=== PATIENT | male | born 1970 | race Caucasian/White ===

== ENCOUNTER 2019-01-20 11:22 | Observation (INO) | payer OTHER ==
[~2019-01-20] VITALS: Ht 172.7 cm; Wt 67.9 kg
[~2019-01-20 11:22] MED LIST: AMOX500 PO; CYCL10 PO; HYDACE5 PO; IBUP800 PO; NAPR500 PO; NAPR550 PO
[2019-01-20 12:52] LABS: BASOPHILS ABSOLUTE AUTO 0.06 K/mm3 (0.00-0.23); BASOPHILS PERCENT AUTO 0 % (0-2); EOSINOPHILS ABSOLUTE AUTO 0.18 K/mm3 (0.00-0.68); EOSINOPHILS PERCENT AUTO 1 % (0-6); Hemoglobin 14.7 g/dL (13.5-17.5); IMMATURE GRAN ABSOLUTE AUTO 0.08 K/mm3 (0.00-0.10); IMMATURE GRAN PERCENT AUTO 1 % (0-1); LYMPHOCYTES ABSOLUTE AUTO 2.87 K/mm3 (0.84-5.20); LYMPHOCYTES PERCENT AUTO 19 % (21-46); MONOCYTES ABSOLUTE AUTO 1.17 K/mm3 (0.16-1.47); MONOCYTES PERCENT AUTO 8 % (4-13); Mean Corpuscular HGB 31.4 pg (26.0-34.0); Mean Corpuscular HGB Conc 34.2 g/dL (31.5-36.5); Mean Corpuscular Volume 92 fL (80-100); Mean Platelet Volume 8.7 fL (9.1-12.4); NEUTROPHILS ABSOLUTE AUTO 11.17 K/mm3 (1.96-9.15); NEUTROPHILS PERCENT AUTO 72 % (41-73); Platelet Count 330 K/mm3 (150-400); RDW Coefficient Variation 11.9 % (11.7-14.2); RDW Standard Deviation 40.1 fL (35.1-46.3); Red Blood Cell Count 4.68 M/mm3 (4.30-5.90); White Blood Cell Count 15.53 K/mm3 (4.00-11.30)
[2019-01-20 13:14] LABS: Alanine Aminotransfer (ALT/SGP 15 U/L (12-78); Albumin, Blood 3.1 g/dL (3.4-5.0); Albumin/Globulin Ratio 0.6 (0.8-1.8); Alk Phos 91 U/L (50-136); Anion Gap 7 mmol/L (6-16); Aspartate Aminotrans (AST/SGOT 11 U/L (12-37); Bilirubin, Total 0.4 mg/dL (0.1-1.0); Blood Urea Nitrogen 11 mg/dL (8-24); Bun/Creatinine Ratio 13.6 (12.0-20.0); CO2, Blood 26 mmol/L (21-32); Calcium, Blood 9.1 mg/dL (8.5-10.1); Chloride, Blood 101 mmol/L (98-108); Creatinine, Blood 0.81 mg/dL (0.60-1.20); Glomerular Filtration Rate >60 (60-); Glucose, Blood 107 mg/dL (70-99); Potassium, Blood 3.9 mmol/L (3.5-5.5); Sodium, Blood 134 mmol/L (136-145); Total Protein, Blood 8.1 g/dL (6.4-8.2)
[2019-01-20 14:37] LABS: CPK Creatine Kinase 54 U/L (39-308); Creatine Kinase MB <1.0 ng/mL (0.0-3.6); Creatine Kinase MB Index Unable to Calculate (0.0-4.0)
--- NOTE | 2019-01-20 17:50 | NUR ---
PT TO [facility] VIA WC FROM ROOM 325.PT HAD NO JEWELRY ON. PT HAD BEEN OUT SMOKING PRIOR TO SIGNAL CONSTRUCTOR. RIGHT THUMB VISIBLY SWOLLEN AND RED. ELEVATED EXTRIMTY. LUNGS SOUNDS DECREASED T/H. CONFIRMED SURGERY AND SURGEON.MULTILPE SMALL AND LARGE RED AND SCABBED SORES SCATTERED THOUGHT BOTH ARMS. 1800. CARE TURNED OVER TO GURMEET IRWIN
--- NOTE | 2019-01-20 18:42 | NUR ---
SHIFT SUMMARY PT WAS A NEW ADMISSION @ 1605 THIS SHIFT. PT INDEPENDENT IN ROOM. PT WENT OUTSIDE TO SMOKE AND DID NOT COME BACK UNTIL WAS TOLD NEEDED TO BE BACK IN ROOM FOR DAY SURGERY TO GET HIM. PT HAS BEEN IN DAY SURGERY FOR I&D OF RIGHT HAND. WILL REPORT TO ONCOMING RN.
[2019-01-20 21:46] LABS: U Amphetamine Screen DETECTED; U Methamphetamine Screen DETECTED
[2019-01-20 21:47] LABS: U Barbituate Screen Not Detected; U Benzodiazapine Screen Not Detected; U Buprenorphine Screen Not Detected; U Cannabinoids Screen DETECTED; U Cocaine Screen Not Detected; U Methadone Screen Not Detected; U Opiates Screen Not Detected; U Oxycodone Screen Not Detected; U Phencyclidine Screen Not Detected; U Propoxyphene Screen Not Detected
--- NOTE | 2019-01-21 05:05 | NUR ---
SHIFT SUMMARY: PATIENT ARRIVED FROM RECOVERY ROOM AT 1950, HE WAS DROWSY BUT ALERT. MOTHER WAS IN THE ROOM. HE WAS COOPERATIVE AND PLEASANT. SATS DROPPED SHORTLY WHILE HE WAS DROWSY AND NEEDED TO BE PLACED ON 2 LITERS OF O2. ONCE HE CAME MORE AWAKE OXYGEN WAS NO LONGER NEEDED. HE WAS ABLE TO GET UP AND PUT BACK ON HIS CLOTHES, AND EAT WITH NO PROBLEMS. HE HAS NOT COMPLAINED OF ANY PAIN OR DISCOMFORT OF THE HAND. HE HAS SEVERAL BANDAIDS ON HIS ARMS THAT ARE COVERING WOUNDS. HIS RIGHT HAND IS WRAPPED AND HAS REMAINED DRY AND INTACT ALL EVENING. HE HAS SLEPT THROUGHOUT THE NIGHT. IV HAS INFUSED WITH OUT NO PROBLEMS. MEDS WERE GIVEN PER EMAR. NO OTHER ACUTE CHANGES OCCURED THIS THIS SHIFT WILL REPORT TO DAY SHIFT RN.
[2019-01-21 05:18] LABS: BASOPHILS ABSOLUTE AUTO 0.05 K/mm3 (0.00-0.23); BASOPHILS PERCENT AUTO 1 % (0-2); EOSINOPHILS PERCENT AUTO 3 % (0-6); Hematocrit 41.7 % (37.0-53.0); Hemoglobin 13.6 g/dL (13.5-17.5); IMMATURE GRAN ABSOLUTE AUTO 0.07 K/mm3 (0.00-0.10); IMMATURE GRAN PERCENT AUTO 1 % (0-1); LYMPHOCYTES ABSOLUTE AUTO 2.38 K/mm3 (0.84-5.20); LYMPHOCYTES PERCENT AUTO 23 % (21-46); MONOCYTES ABSOLUTE AUTO 0.88 K/mm3 (0.16-1.47); MONOCYTES PERCENT AUTO 9 % (4-13); Mean Corpuscular HGB 30.6 pg (26.0-34.0); Mean Corpuscular HGB Conc 32.6 g/dL (31.5-36.5); Mean Corpuscular Volume 94 fL (80-100); Mean Platelet Volume 8.8 fL (9.1-12.4); NEUTROPHILS ABSOLUTE AUTO 6.65 K/mm3 (1.96-9.15); NEUTROPHILS PERCENT AUTO 64 % (41-73); Platelet Count 291 K/mm3 (150-400); RDW Standard Deviation 41.6 fL (35.1-46.3); Red Blood Cell Count 4.44 M/mm3 (4.30-5.90); White Blood Cell Count 10.33 K/mm3 (4.00-11.30)
[2019-01-21 05:56] LABS: Anion Gap 6 mmol/L (6-16); Blood Urea Nitrogen 9 mg/dL (8-24); Bun/Creatinine Ratio 11.7 (12.0-20.0); CO2, Blood 28 mmol/L (21-32); Calcium, Blood 8.1 mg/dL (8.5-10.1); Chloride, Blood 105 mmol/L (98-108); Creatinine, Blood 0.77 mg/dL (0.60-1.20); Glomerular Filtration Rate >60 (60-); Glucose, Blood 75 mg/dL (70-99); Sodium, Blood 139 mmol/L (136-145)
--- NOTE | 2019-01-21 07:00 | NUR ---
ASSUMED CARE OF PT- REPORT RECIEVED FROM NIGHT LORENA OVIEDO. PER REPORT PT IS ALERT AND ORIENTED AND INDEPENDENT IN THE ROOM. PT HAD I&D DONE. PER REPORT POTENTIAL DISCHARGE TODAY. PT REFUSED MORNING VITALS AND PO MEDS.
[2019-01-21] MEDS ORDERED: DOXY100 PO (10:52)
[2019-01-21] MEDS ORDERED: ACET325 PO (10:53)
[2019-01-21] MEDS ORDERED: TRAM50 PO (10:53)
--- NOTE | 2019-01-21 14:37 | NUR ---
PHARMACY CALLED, 100MG TABS NOT COVERED FOR TRAMADOL. ORDER CHANGED TO 2-50MG TABS EVERY 8 HOURS NEEDED FOR PAIN FILL QUANTITY OF 20. OK PER DR MARTIN.
--- NOTE | 2019-01-21 16:10 | NUR ---
DISCHARGE NOTE- PT WAS GIVEN VERBAL AND WRITTEN DISCHARGE INSTRUCTIONS AND ACKNOWLEDGED UNDERSTANDING OF THEM, BOTH IV'S DC'D PRIOR TO DISCHARGE. PT ALERT AND ORIENTED AND WAS ESCORTED OUT VIA W/C BY THE SENIOR ESTIMATOR AFTER DR STEPHEN CAME TO SEE THE PT. WILL SEE THE PT IN HIS OFFICE ON THURSDAY. PT IS AWARE.
== END 2019-01-21 14:15 | disposition home or self-care (01) ==
LOC: ER 11:22 → MEDS 11:23 → ER 15:02 → MEDS 15:02 → ENPENDDIS 01-21 10:15 → MEDS 01-21 14:15
PROVIDERS: Nurse Practitioner Acute Care; Orthopaedic Surgery; Physician Assistant; ADMIT Internal Medicine
PROC: 0H9FXZZ Drainage of Right Hand Skin, External Approach (ICD-10-PCS; principal; 2019-01-20 18:00)
DX: A41.9 Sepsis, unspecified organism (principal); L03.011 Cellulitis of right finger; R21 Rash and other nonspecific skin eruption; F19.10 Other psychoactive substance abuse, uncomplicated; F17.210 Nicotine dependence, cigarettes, uncomplicated
CPT/HCPCS: 36415; 73120; 73223; 80048; 80053; 82550; 82553; 83605; 85025; 87040; 87070; 87075; 87077; 87147; 87186; 87205; 96365; 96366; 99284-25; A9577; G0378; J1650; J2250; J2704; J3010; J3370; J7030; J7120

== ENCOUNTER 2019-06-06 19:49 | Observation (INO) | payer OTHER ==
[~2019-06-06] VITALS: Ht 172.7 cm; Wt 69.0 kg
[~2019-06-06 19:49] MED LIST changes: +ACET325 PO; +DOXY100 PO; +TRAM50 PO
[2019-06-06 21:11] LABS: BASOPHILS ABSOLUTE AUTO 0.07 K/mm3 (0.00-0.23); BASOPHILS PERCENT AUTO 1 % (0-2); EOSINOPHILS ABSOLUTE AUTO 0.37 K/mm3 (0.00-0.68); EOSINOPHILS PERCENT AUTO 2 % (0-6); Hematocrit 44.3 % (37.0-53.0); Hemoglobin 14.8 g/dL (13.5-17.5); IMMATURE GRAN ABSOLUTE AUTO 0.05 K/mm3 (0.00-0.10); IMMATURE GRAN PERCENT AUTO 0 % (0-1); LYMPHOCYTES ABSOLUTE AUTO 2.42 K/mm3 (0.84-5.20); LYMPHOCYTES PERCENT AUTO 16 % (21-46); MONOCYTES ABSOLUTE AUTO 1.15 K/mm3 (0.16-1.47); MONOCYTES PERCENT AUTO 8 % (4-13); Mean Corpuscular HGB 30.1 pg (26.0-34.0); Mean Corpuscular HGB Conc 33.4 g/dL (31.5-36.5); Mean Corpuscular Volume 90 fL (80-100); Mean Platelet Volume 8.8 fL (9.1-12.4); NEUTROPHILS ABSOLUTE AUTO 11.21 K/mm3 (1.96-9.15); NEUTROPHILS PERCENT AUTO 74 % (41-73); Platelet Count 298 K/mm3 (150-400); RDW Coefficient Variation 12.3 % (11.7-14.2); RDW Standard Deviation 40.3 fL (35.1-46.3); Red Blood Cell Count 4.91 M/mm3 (4.30-5.90); White Blood Cell Count 15.27 K/mm3 (4.00-11.30)
[2019-06-06 21:29] LABS: Alanine Aminotransfer (ALT/SGP 14 U/L (12-78); Albumin, Blood 3.5 g/dL (3.4-5.0); Albumin/Globulin Ratio 0.9 (0.8-1.8); Alk Phos 89 U/L (50-136); Anion Gap 6 mmol/L (6-16); Aspartate Aminotrans (AST/SGOT 13 U/L (12-37); Bilirubin, Total 0.2 mg/dL (0.1-1.0); Blood Urea Nitrogen 10 mg/dL (8-24); Bun/Creatinine Ratio 15.6 (12.0-20.0); CO2, Blood 29 mmol/L (21-32); Calcium, Blood 8.8 mg/dL (8.5-10.1); Chloride, Blood 102 mmol/L (98-108); Creatinine, Blood 0.64 mg/dL (0.60-1.20); Globulin, Blood 3.8 g/dL (2.2-4.0); Glomerular Filtration Rate >60 (60-); Glucose, Blood 143 mg/dL (70-99); Potassium, Blood 3.5 mmol/L (3.5-5.5); Sodium, Blood 137 mmol/L (136-145); Total Protein, Blood 7.3 g/dL (6.4-8.2)
--- NOTE | 2019-06-07 07:00 | NUR ---
REPORT FROM ZACHARY CARRILLO. ASSUMED PT CARE.
--- NOTE | 2019-06-07 11:55 | NUR ---
PT STILL WORKING ON [employer]. DENIES NEEDS. AWAITING ROOM ASSIGNMENT.
--- NOTE | 2019-06-07 15:26 | NUR ---
Received report from Laureen in PACU; the pt was promptly received afterwards to room 231. He is awake, drowsy, and answering questions and stating frequently that he is hungry. Tolerated jello, ice chips and water at this time. Denies nausea. Denies pain. Left hand is bandaged and dressing is clean, dry and intact. His digits 1-4 on the left hand are visible, and are pink, warm and brisk cap refill. He denies numbness/tingling on his hands/feet. Attempted to drink his jello, and after instruction to try the spoon for the jello he picked up the straw and attempted to drink it it with the straw. Instructed again to use the spoon, and then he was able to steel pickler the correct item and ate the jello with a flourish. Bed alarm on.
[2019-06-07 15:43] LABS: Automated BF RBC Count 0.202 M/mm3 (0-0); RBC Count, Body Fluid 202000 /mm3 (0-0)
[2019-06-07 16:10] LABS: Automated BF WBC Count >200.000 K/mm3 (0-999); Body Fluid WBC Count 200001 /mm3 (0-999)
[2019-06-07 16:32] LABS: Total Cell Count, Body Fluid 100
[2019-06-07 16:33] LABS: Color, Body Fluid Red (None-Yellow)
[2019-06-07 16:34] LABS: Appearance, Body Fluid Turbid (Clear)
--- NOTE | 2019-06-07 17:43 | NUR ---
PT OUT OF ROOM PT AMBULATING IND OUTSIDE. ABX AND SMOKING CESSATION EDUCATION PROVIDED.
--- NOTE | 2019-06-07 18:10 | NUR ---
SHIFT SUMMARY NO ACUTE CHANGES SINCE ASSUMING CARE AT 1630 TODAY. DRESSING TO LEFT 5TH DIGIT C/D/I. PT TOLERATING REGULAR DIET. AMBULATES IND IN ROOM. VOIDING WITHOUT DIFFICULTY. ABX/IVF RUNNING PER ORDERS. DENIED DISCOMFORT OR PAIN. A/OX4 WITH VSS. PT CURRENTLY RESTING IN ROOM WITH CALL LIGHT IN REACH. WILL CONT TO MONITOR AND GIVE REPORT TO ONCOMING RN.
--- NOTE | 2019-06-08 04:13 | NUR ---
POD 1 S/P I&D OF LEFT PINKY FINGER. PT DRESSING CDI. PAIN MGD W/PO PAIN MEDS W/REP RELIEF. PT ROSA REG PO, NO C/O N/V. IS VOIDING W/O DIFFICULTY. PT INDEP IN ROOM, IS USING CALL LIGHT FOR ASSISTANCE. IV ABX CONT PER ORDERS. WILL CONT TO MONITOR UNTIL REP GIVEN TO ONCOMING RN.
[2019-06-08 05:27] LABS: BASOPHILS ABSOLUTE AUTO 0.02 K/mm3 (0.00-0.23); BASOPHILS PERCENT AUTO 0 % (0-2); EOSINOPHILS ABSOLUTE AUTO 0.01 K/mm3 (0.00-0.68); EOSINOPHILS PERCENT AUTO 0 % (0-6); Hematocrit 42.6 % (37.0-53.0); Hemoglobin 14.1 g/dL (13.5-17.5); IMMATURE GRAN ABSOLUTE AUTO 0.04 K/mm3 (0.00-0.10); IMMATURE GRAN PERCENT AUTO 0 % (0-1); LYMPHOCYTES ABSOLUTE AUTO 1.15 K/mm3 (0.84-5.20); LYMPHOCYTES PERCENT AUTO 9 % (21-46); MONOCYTES ABSOLUTE AUTO 0.61 K/mm3 (0.16-1.47); MONOCYTES PERCENT AUTO 5 % (4-13); Mean Corpuscular HGB Conc 33.1 g/dL (31.5-36.5); Mean Corpuscular Volume 91 fL (80-100); NEUTROPHILS ABSOLUTE AUTO 11.36 K/mm3 (1.96-9.15); NEUTROPHILS PERCENT AUTO 86 % (41-73); Platelet Count 281 K/mm3 (150-400); RDW Coefficient Variation 12.1 % (11.7-14.2); RDW Standard Deviation 40.3 fL (35.1-46.3); White Blood Cell Count 13.19 K/mm3 (4.00-11.30)
[2019-06-08 05:51] LABS: Anion Gap 8 mmol/L (6-16); Blood Urea Nitrogen 15 mg/dL (8-24); Bun/Creatinine Ratio 19.3 (12.0-20.0); CO2, Blood 27 mmol/L (21-32); Calcium, Blood 8.8 mg/dL (8.5-10.1); Chloride, Blood 103 mmol/L (98-108); Creatinine, Blood 0.78 mg/dL (0.60-1.20); Glomerular Filtration Rate >60 (60-); Glucose, Blood 141 mg/dL (70-99); Potassium, Blood 4.5 mmol/L (3.5-5.5); Sodium, Blood 138 mmol/L (136-145)
[2019-06-08] MEDS ORDERED: HYDR1TAB94 PO (16:51)
[2019-06-08] MEDS ORDERED: AMOCLA875 PO (16:52)
--- NOTE | 2019-06-08 17:16 | NUR ---
DISCHARGE PT EDUCATED ON AND RECEIVED PRINTED DC INSTRUCTIONS AND VERBALIZED AN UNDERSTANDING. PT ALSO GIVEN 2 DAYS WORTH OF WOUND CARE SUPPLIES. REFERRAL SENT TO OUTPATIENT WOUND CLINIC. IVS DC'D. PT REPORTS HE WILL CALL AND ARRANGE F/U APPTS. AUGMENTIN RX CALLED INTO [facility]. HARD RX FOR NORCO GIVEN TO PT. PT GATHERING PERSONAL BELONGINGS. CALLING PT TAXI FOR RIDE HOME.
--- NOTE | 2019-06-08 17:19 | NUR ---
DR. TURNER CHANGED DRESSING TODAY.
--- NOTE | 2019-06-08 17:55 | NUR ---
[facility] CALLED. TAXI TO ETHICS MANAGER PT IN APPROX 10-15 MINS.
== END 2019-06-08 18:22 | disposition home or self-care (01) ==
LOC: ER 19:49 → ERHOLD 19:50 → SURS 19:50 → ERHOLD 19:51 → ER 22:19 → SURS 06-07 13:29
PROVIDERS: Internal Medicine; Orthopaedic Surgery; Physician Assistant; ADMIT Internal Medicine
PROC: 0JBK0ZZ Excision of Left Hand Subcutaneous Tissue and Fascia, Open Approach (ICD-10-PCS; principal; 2019-06-07 13:45)
DX: L03.012 Cellulitis of left finger (principal); F17.210 Nicotine dependence, cigarettes, uncomplicated; Z79.899 Other long term (current) drug therapy
CPT/HCPCS: 36415; 73130; 73201; 80048; 80053; 83605; 85025; 87070; 87075; 87147; 87205; 89051; 94762; 96361; 96366; 96372-59; 96374-59; 96375; 96375-59; 96376; 99285-25; A9270-GY; G0378; J1100; J1650; J1885; J2250; J2370; J2405; J2543; J2704; J3010; J3370; J7050; J7120; Q9967

== ENCOUNTER → 2020-10-23 | Outpatient (CLI) | payer OTHER ==
[~2020-10-23] MED LIST changes: +AMOCLA875 PO; +HYDR1TAB94 PO
== END | disposition home or self-care (01) ==
LOC: LAB SHORT 19:15 → LAB 19:15
DX: L02.91 Cutaneous abscess, unspecified (principal)
CPT/HCPCS: 87070; 87075; 87077; 87147; 87186; 87205

== ENCOUNTER 2022-04-08 16:26 | Inpatient (IN) | payer OTHER ==
[~2022-04-08] VITALS: Ht 172.7 cm; Wt 69.6 kg
[2022-04-08 17:39] LABS: BASOPHILS ABSOLUTE AUTO 0.03 K/mm3 (0.00-0.23); BASOPHILS PERCENT AUTO 0 % (0-2); EOSINOPHILS ABSOLUTE AUTO 0.01 K/mm3 (0.00-0.68); EOSINOPHILS PERCENT AUTO 0 % (0-6); Hematocrit 42.5 % (37.0-53.0); IMMATURE GRAN ABSOLUTE AUTO 0.38 K/mm3 (0.00-0.10); IMMATURE GRAN PERCENT AUTO 2 % (0-1); LYMPHOCYTES ABSOLUTE AUTO 0.52 K/mm3 (0.84-5.20); LYMPHOCYTES PERCENT AUTO 3 % (21-46); MONOCYTES ABSOLUTE AUTO 1.01 K/mm3 (0.16-1.47); MONOCYTES PERCENT AUTO 6 % (4-13); Mean Corpuscular HGB 30.7 pg (26.0-34.0); Mean Corpuscular HGB Conc 35.3 g/dL (31.5-36.5); Mean Corpuscular Volume 87 fL (80-100); NEUTROPHILS PERCENT AUTO 89 % (41-73); Platelet Count 239 K/mm3 (150-400); RDW Coefficient Variation 12.4 % (11.7-14.2); RDW Standard Deviation 39.6 fL (35.1-46.3); Red Blood Cell Count 4.88 M/mm3 (4.30-5.90); White Blood Cell Count 18.35 K/mm3 (4.00-11.30)
[2022-04-08 17:48] LABS: Albumin, Blood 3.4 g/dL (3.4-5.0); Albumin/Globulin Ratio 0.8 (0.8-1.8); Bilirubin, Total 0.6 mg/dL (0.1-1.0); Bun/Creatinine Ratio 9.9 (12.0-20.0); Calcium, Blood 8.5 mg/dL (8.5-10.1); Creatinine, Blood 0.71 mg/dL (0.60-1.20); Globulin, Blood 4.1 g/dL (2.2-4.0); Potassium, Blood 3.5 mmol/L (3.5-5.5); Total Protein, Blood 7.5 g/dL (6.4-8.2)
[2022-04-08 18:58] LABS: Influenza A, PCR NEGATIVE (NEGATIVE); Influenza B, PCR NEGATIVE (NEGATIVE); Resp Syncytial Virus, PCR NEGATIVE (NEGATIVE); SARS-Cov-2 (COVID-19) PCR, MMC NEGATIVE (NEGATIVE)
--- NOTE | 2022-04-09 04:14 | NUR ---
PATIENT ARRIVED IN ROOM ABOUT 2326. AOX3-4 BUT SOMEWHAT DIFFICULT TO AROUSE. ABLE TO ANSWER QUESTIONS BUT HAD TO REPEAT MYSELF SEVERAL TIMES FOR HIM TO FOCUS ENOUGH TO ANSWER. PATIENT WAS SELF REPORTEDLY VERY TIRED AND WANTED TO SLEEP. ABLE TO COMPLETE HEALTH HX AND MEDICATION RECONCILIATION WITH HIS ASSISTANCE. IV IN LEFT AC FLUSHES WELL, FINISHED HANGING AZITHROMYCIN AND SALINE LOCKED. PATIENT IS MOSTLY INDEPENDENT WITHIN ROOM, ABLE TO TRANSFER HIMSELF TO COMMODE WITHOUT DIFFICULTY. CALLS APPROPRIATELY. AROUND 0230 VS CHECK REMARKABLE FOR ELEVATED TEMP. ADMINISTERED PRN ACETAMINOPHEN. RECHECKED TEMP ABOUT 0400 AND IT HAD FALLEN TO 97.8. SPUTUM SAMPLE SENT TO [facility] PER ORDER. PATIENT HAS BEEN ABLE TO SLEEP THROUGH MOST OF SHIFT. CALL LIGHT LEFT WITHIN REACH.
[2022-04-09 05:11] LABS: BASOPHILS ABSOLUTE AUTO 0.04 K/mm3 (0.00-0.23); BASOPHILS PERCENT AUTO 0 % (0-2); EOSINOPHILS ABSOLUTE AUTO 0.18 K/mm3 (0.00-0.68); EOSINOPHILS PERCENT AUTO 1 % (0-6); Hematocrit 39.5 % (37.0-53.0); Hemoglobin 13.5 g/dL (13.5-17.5); IMMATURE GRAN ABSOLUTE AUTO 0.66 K/mm3 (0.00-0.10); IMMATURE GRAN PERCENT AUTO 3 % (0-1); LYMPHOCYTES ABSOLUTE AUTO 1.37 K/mm3 (0.84-5.20); LYMPHOCYTES PERCENT AUTO 6 % (21-46); MONOCYTES ABSOLUTE AUTO 0.98 K/mm3 (0.16-1.47); MONOCYTES PERCENT AUTO 4 % (4-13); Mean Corpuscular HGB 30.3 pg (26.0-34.0); Mean Corpuscular HGB Conc 34.2 g/dL (31.5-36.5); Mean Corpuscular Volume 89 fL (80-100); Mean Platelet Volume 9.9 fL (9.1-12.4); NEUTROPHILS ABSOLUTE AUTO 20.06 K/mm3 (1.96-9.15); NEUTROPHILS PERCENT AUTO 86 % (41-73); Platelet Count 231 K/mm3 (150-400); RDW Coefficient Variation 12.7 % (11.7-14.2); Red Blood Cell Count 4.45 M/mm3 (4.30-5.90); White Blood Cell Count 23.29 K/mm3 (4.00-11.30)
[2022-04-09 05:36] LABS: Bun/Creatinine Ratio 12.1 (12.0-20.0); Calcium, Blood 8.1 mg/dL (8.5-10.1); Creatinine, Blood 0.91 mg/dL (0.60-1.20); Potassium, Blood 3.8 mmol/L (3.5-5.5)
[2022-04-09 05:56] LABS: U Amphetamine Screen DETECTED; U Barbituate Screen Not Detected; U Benzodiazapine Screen Not Detected; U Buprenorphine Screen Not Detected; U Cannabinoids Screen Not Detected; U Cocaine Screen Not Detected; U Methadone Screen Not Detected; U Methamphetamine Screen DETECTED; U Opiates Screen Not Detected; U Oxycodone Screen Not Detected; U Phencyclidine Screen Not Detected; U Propoxyphene Screen Not Detected
--- NOTE | 2022-04-09 17:35 | NUR ---
SHIFT SUMMARY PT INDEPENDENT IN ROOM. HARSH COUGH NOTED WHICH REPORTS CAUSES CHEST PAIN. OTHERWISE NO PAIN. DENIES ANY SOB WITH ACTIVITY WELL. COOPERATIVE WITH CARE AND ANSWERS QUESTIONS APPROPRIATELY. SHOWER TAKEN AND TOLERATED WELL.
[2022-04-10 05:10] LABS: BASOPHILS ABSOLUTE AUTO 0.05 K/mm3 (0.00-0.23); BASOPHILS PERCENT AUTO 0 % (0-2); EOSINOPHILS ABSOLUTE AUTO 0.25 K/mm3 (0.00-0.68); EOSINOPHILS PERCENT AUTO 1 % (0-6); Hemoglobin 13.1 g/dL (13.5-17.5); IMMATURE GRAN ABSOLUTE AUTO 0.18 K/mm3 (0.00-0.10); IMMATURE GRAN PERCENT AUTO 1 % (0-1); LYMPHOCYTES ABSOLUTE AUTO 1.85 K/mm3 (0.84-5.20); LYMPHOCYTES PERCENT AUTO 9 % (21-46); MONOCYTES ABSOLUTE AUTO 1.07 K/mm3 (0.16-1.47); MONOCYTES PERCENT AUTO 5 % (4-13); Mean Corpuscular HGB 30.2 pg (26.0-34.0); Mean Corpuscular HGB Conc 34.5 g/dL (31.5-36.5); Mean Corpuscular Volume 88 fL (80-100); NEUTROPHILS ABSOLUTE AUTO 18.28 K/mm3 (1.96-9.15); NEUTROPHILS PERCENT AUTO 84 % (41-73); Platelet Count 237 K/mm3 (150-400); RDW Coefficient Variation 12.6 % (11.7-14.2); RDW Standard Deviation 40.9 fL (35.1-46.3); Red Blood Cell Count 4.34 M/mm3 (4.30-5.90); White Blood Cell Count 21.68 K/mm3 (4.00-11.30)
[2022-04-10 05:21] LABS: Bun/Creatinine Ratio 18.2 (12.0-20.0); Calcium, Blood 8.2 mg/dL (8.5-10.1); Creatinine, Blood 0.82 mg/dL (0.60-1.20); Potassium, Blood 3.9 mmol/L (3.5-5.5)
--- NOTE | 2022-04-10 08:33 | NUR ---
GEOLOGICAL ENGINEER SUMMARY MR HICKEY WAS VERY QUIET OVERNIGHT. HE MADE IT CLEAR THAT "HE WAS FINE AND DIDN'T FEEL HE NEEDED GARETH FURTHER IV ANTIBIOTICS. " HE DID, IN THE END TAKE BOTH THE zITHROMAX WELL THE VANCO. HE DID TAKE 2 TYLENOL ONCE OVERNIGHT FOR PAIN BEFORE FALLING TO SLEEP
--- NOTE | 2022-04-10 19:35 | NUR ---
SHIFT SUMMARY PATIENT ALERT AND ORIENTED. RESTED IN BED ALL DAY WATCHING TV. INDEPENDENT IN ROOM. TOLERATING REGULAR DIET AND LIQUIDS. TELE DC'D. MEDICATED FOR PLEURITIC CHEST PAIN PER EMAR. PAIN MOSTLY WITH COUGH. PLAN TO DISCHARGE TOMORROW WITH ORAL ABX.
--- NOTE | 2022-04-11 07:38 | NUR ---
PATIENT WAS UP MOST OF THE NIGHT. HE REFUSED IV RE START TO TAKE HIS LAST IV ANTIBIOTICS,(ORDER FOR ORAL AUGMENTIN) WAS RECEIVED AND GIVEN. HE THEN,THIS MORNING,HE REFUSED AM LABS. MINOR ASSESSMENT WAS ALLOWED EARLY IN THE EVENING WHICH DEFINATELY SOUNDED IMPROVED OVER THE NIGHT PREVIOUS
[2022-04-11] MEDS ORDERED: Acetaminophen650 M1 PO (10:26)
[2022-04-11] MEDS ORDERED: AMOCLA875 PO (10:28)
[2022-04-11] MEDS ORDERED: PROBIOTIC1 EA13 PO (10:31)
--- NOTE | 2022-04-11 11:31 | NUR ---
1131 DISCHARGED WITH TRANSPORTATION SERVICE, PATIENT STATES UNDERSTANDING OF DISCHARGE, FOLLOW UP NEEDS, MEDICATION
== END 2022-04-11 11:34 | disposition home or self-care (01) | DRG 871 ==
LOC: ER 16:26 → MEDS 21:56
PROVIDERS: Internal Medicine; Student in an Organized Health Care Education/Training Program; ADMIT Family Medicine
DX: A41.9 Sepsis, unspecified organism (principal); J18.9 Pneumonia, unspecified organism; E87.1 Hypo-osmolality and hyponatremia; R04.2 Hemoptysis; F17.210 Nicotine dependence, cigarettes, uncomplicated; F15.10 Other stimulant abuse, uncomplicated; B86 Scabies; J30.1 Allergic rhinitis due to pollen; Z20.822 Contact with and (suspected) exposure to COVID-19; Z79.891 Long term (current) use of opiate analgesic; Z79.2 Long term (current) use of antibiotics; Z98.890 Other specified postprocedural states; Z87.2 Personal history of diseases of the skin and subcutaneous tissue; Z71.6 Tobacco abuse counseling
CPT/HCPCS: 0241U; 36415; 71045; 80048; 80053; 83605; 84484; 85025; 87070; 87205; 93005; 93010; 94760; 96365; 96375; 99285-25; A9270; J0456; J0696; J1885; J2405; J7030; J7040; J7050

== ENCOUNTER 2022-06-12 22:25 | Observation (INO) | payer OTHER ==
[~2022-06-12] VITALS: Ht 172.7 cm; Wt 66.4 kg
[~2022-06-12 22:25] MED LIST changes: +Acetaminophen650 M1 PO; +PROBIOTIC1 EA13 PO
[2022-06-12 23:18] LABS: BASOPHILS ABSOLUTE AUTO 0.07 K/mm3 (0.00-0.23); BASOPHILS PERCENT AUTO 0 % (0-2); EOSINOPHILS ABSOLUTE AUTO 0.02 K/mm3 (0.00-0.68); EOSINOPHILS PERCENT AUTO 0 % (0-6); Hematocrit 49.7 % (37.0-53.0); Hemoglobin 17.6 g/dL (13.5-17.5); IMMATURE GRAN ABSOLUTE AUTO 0.09 K/mm3 (0.00-0.10); IMMATURE GRAN PERCENT AUTO 1 % (0-1); LYMPHOCYTES ABSOLUTE AUTO 1.72 K/mm3 (0.84-5.20); LYMPHOCYTES PERCENT AUTO 9 % (21-46); MONOCYTES ABSOLUTE AUTO 1.37 K/mm3 (0.16-1.47); MONOCYTES PERCENT AUTO 7 % (4-13); Mean Corpuscular HGB 30.6 pg (26.0-34.0); Mean Corpuscular HGB Conc 35.4 g/dL (31.5-36.5); Mean Corpuscular Volume 86 fL (80-100); Mean Platelet Volume 9.1 fL (9.1-12.4); NEUTROPHILS ABSOLUTE AUTO 15.14 K/mm3 (1.96-9.15); NEUTROPHILS PERCENT AUTO 82 % (41-73); Platelet Count 337 K/mm3 (150-400); RDW Coefficient Variation 13.1 % (11.7-14.2); Red Blood Cell Count 5.76 M/mm3 (4.30-5.90); White Blood Cell Count 18.41 K/mm3 (4.00-11.30)
[2022-06-12 23:42] LABS: Albumin, Blood 3.8 g/dL (3.4-5.0); Albumin/Globulin Ratio 0.8 (0.8-1.8); Bilirubin, Total 0.6 mg/dL (0.1-1.0); Bun/Creatinine Ratio 20.9 (12.0-20.0); Creatinine, Blood 1.1 mg/dL (0.60-1.20); Potassium, Blood 4.4 mmol/L (3.5-5.5); Total Protein, Blood 8.8 g/dL (6.4-8.2)
[2022-06-13 06:06] LABS: BASOPHILS ABSOLUTE AUTO 0.04 K/mm3 (0.00-0.23); BASOPHILS PERCENT AUTO 0 % (0-2); EOSINOPHILS PERCENT AUTO 1 % (0-6); Hematocrit 44.5 % (37.0-53.0); Hemoglobin 15.1 g/dL (13.5-17.5); IMMATURE GRAN ABSOLUTE AUTO 0.07 K/mm3 (0.00-0.10); IMMATURE GRAN PERCENT AUTO 0 % (0-1); LYMPHOCYTES ABSOLUTE AUTO 3.57 K/mm3 (0.84-5.20); LYMPHOCYTES PERCENT AUTO 19 % (21-46); MONOCYTES ABSOLUTE AUTO 1.33 K/mm3 (0.16-1.47); MONOCYTES PERCENT AUTO 7 % (4-13); Mean Corpuscular HGB 30.3 pg (26.0-34.0); Mean Corpuscular HGB Conc 33.9 g/dL (31.5-36.5); Mean Corpuscular Volume 89 fL (80-100); Mean Platelet Volume 8.9 fL (9.1-12.4); NEUTROPHILS ABSOLUTE AUTO 13.27 K/mm3 (1.96-9.15); NEUTROPHILS PERCENT AUTO 72 % (41-73); Platelet Count 312 K/mm3 (150-400); RDW Coefficient Variation 13.3 % (11.7-14.2); RDW Standard Deviation 43.4 fL (35.1-46.3); Red Blood Cell Count 4.99 M/mm3 (4.30-5.90); White Blood Cell Count 18.38 K/mm3 (4.00-11.30)
[2022-06-13 06:24] LABS: Calcium, Blood 8.7 mg/dL (8.5-10.1); Creatinine, Blood 1.15 mg/dL (0.60-1.20); Potassium, Blood 3.6 mmol/L (3.5-5.5)
--- NOTE | 2022-06-13 07:27 | NUR ---
PATIENT COMBATIVE AND ANGRY, REFUSING CARE, NPO, HAD AN EPISODE OF COFFEE GROUND EMISIS, REFUSED MORNING MEDICATION, WAITING ON [facility] TO TRANSFER FOR GI CONSULT, ADMIT TO MONITOR ONLY
[2022-06-13 14:24] LABS: Hematocrit 45.7 % (37.0-53.0); Hemoglobin 15.6 g/dL (13.5-17.5)
--- NOTE | 2022-06-13 19:48 | NUR ---
PT PLEASANT TODAY. TALKED ABOUT HIS SKIN SOME. LOOKS DARK DIRTY. HE STATES HAS BEEN BURNING CLEARING LAND RECENTLY. ENCOURAGED GOOD SHOWER, WHICH HE DID TODAY. GOT SOME STAIN OFF. ENCOURAGED HIM TO TAKE SHOWER EVERY DAY. STATES HAS TRAILER OUT ON PROPERTY HE STAYS AT, BUT TRYING TO GET A BETTER ONE. IV FINISHED AND SALINE LOCKED. NO C/O PAIN. HAD SMALL COFFEE GROUND DARK EMESIS THIS AM AT SHIFT CHANGE. HAVE SEEN NONE SINCE. NO NEW CONCERNS NOTED. PENDING TRANSFER TO OTHER HOSPITAL FOR GI TREATMENT. BED IN [facility], CALL LITE IN REACH, CALLS APPROP
[2022-06-13 19:55] LABS: Hemoglobin 14.3 g/dL (13.5-17.5)
[2022-06-14 02:12] LABS: Hematocrit 39.6 % (37.0-53.0); Hemoglobin 13.4 g/dL (13.5-17.5); Mean Corpuscular HGB 30.7 pg (26.0-34.0); Mean Corpuscular HGB Conc 33.8 g/dL (31.5-36.5); Mean Corpuscular Volume 91 fL (80-100); Mean Platelet Volume 9.1 fL (9.1-12.4); Platelet Count 289 K/mm3 (150-400); RDW Coefficient Variation 13.4 % (11.7-14.2); RDW Standard Deviation 44.8 fL (35.1-46.3); Red Blood Cell Count 4.37 M/mm3 (4.30-5.90); White Blood Cell Count 14.38 K/mm3 (4.00-11.30)
[2022-06-14 02:37] LABS: Albumin, Blood 2.9 g/dL (3.4-5.0); Anion Gap 6 mmol/L (6-16); Blood Urea Nitrogen 27 mg/dL (8-24); Bun/Creatinine Ratio 33.2 (12.0-20.0); CO2, Blood 27 mmol/L (21-32); Calcium, Blood 8.4 mg/dL (8.5-10.1); Chloride, Blood 107 mmol/L (98-108); Creatinine, Blood 0.81 mg/dL (0.60-1.20); Glomerular Filtration Rate 106 (60-); Glucose, Blood 85 mg/dL (70-99); Phosphorus, Blood 2.5 mg/dL (2.5-4.9); Potassium, Blood 3.7 mmol/L (3.5-5.5); Sodium, Blood 140 mmol/L (136-145)
[2022-06-14 06:41] LABS: Hematocrit 39.1 % (37.0-53.0); Hemoglobin 13.5 g/dL (13.5-17.5)
--- NOTE | 2022-06-14 07:39 | NUR ---
PATIENT ALERT AND ORIENTED, VERY ABRASSIVE WITH STAFF AND WANTS TO BE LEFT ALONE, SR W/ PVC'S ON TELE, ROOM AIR, INDEPENDENT, 20 RFA SL, AWAITING TRANSFTER TO [facility] FOR POSSIBLE UPPER GI BLEED, EPISODE OF COFFEE GROUND EMESIS ON 06/13. NO EVENTS OVERNIGHT
--- NOTE | 2022-06-14 16:35 | NUR ---
SHIFT SUMMARY: PATIENT A&OX4. CALM, PLEASANT AND COOPERATIVE c CARE. USES CALL LIGHT APPROPRIATELY AND ABLE TO MAKE NEEDS KNOWN. PATIENT DENIES CP/PRESSURE. ON TELE, SR HR OF 75 BPM, PER CABINET BUILDER CHRISTINE SCHREIBER. PATIENT DIET WAS CHANGED TO CL THIS AM. PATIENT HAS BEEN TOLERATING CL DIET. DENIES N/V, ABDOMINAL PAIN/DISCOMFORT. PER PATIENT "I'M READY FOR REGULAR FOOD WHENEVER YOU GUYS READY TO GIVE ME SOME." NO BM THIS SHIFT. RECEIVED SCHEDULED IV PROTONIX THIS SHIFT. PATIENT USES URINAL IN BED INDEPENDENTLY. IV TO R FOREARM SALINE LOCKED. VITAL SIGNS REVIEWED. CALL LIGHT IN REACH.
--- NOTE | 2022-06-14 17:49 | NUR ---
CALLED DR. GRIMALDO AT AROUND 1735 REGARDING PATIENT REQUEST TO HAVE REGULAR FOOD. RECEIVED ORDER FROM DR. GRIMALDO TO PLACED PATIENT ON FL DIET.
--- NOTE | 2022-06-15 04:28 | NUR ---
PT A&O4, INDEPENDENT WITH ADLS, RA, AGITATED WITH STAFF THIS SHIFT WHEN ENTERING ROOM, UNCOOPERATIVE WITH CARE, NO COMPLAINTS OF DISCOFORT THIS SHIFT, CONTINUE POC
[2022-06-15 09:26] LABS: Hematocrit 37.9 % (37.0-53.0); Mean Corpuscular HGB 30.7 pg (26.0-34.0); Mean Corpuscular HGB Conc 34.3 g/dL (31.5-36.5); Mean Corpuscular Volume 90 fL (80-100); Mean Platelet Volume 9.1 fL (9.1-12.4); Platelet Count 275 K/mm3 (150-400); RDW Coefficient Variation 12.9 % (11.7-14.2); RDW Standard Deviation 42.3 fL (35.1-46.3); Red Blood Cell Count 4.23 M/mm3 (4.30-5.90); White Blood Cell Count 7.87 K/mm3 (4.00-11.30)
[2022-06-15] MEDS ORDERED: Calcium Carbon500 MG PO (11:08)
[2022-06-15] MEDS ORDERED: PANTOPRAZOLE SO PO (11:10)
--- NOTE | 2022-06-15 11:25 | NUR ---
NOTES/DISCHARGE SUMMARY: NO NEW ACUTE CHANGES IN PATIENT CONDITION THIS SHIFT. PATIENT A&OX4. IRRITABLE, ANXIOUS AND ANGRY. PATIENT DENIES CP/PRESSURE. ON TELE SR HR IN LOW 90'S BPM PER SHUT OFF WORKERKALLIE DOWNS. PATIENT HAD SHOWER. AFTER HE TOOK A SHOWER PATIENT HAD OUTBURST EPISODE YELLING OUT IN ROOM. WHEN THIS RN WENT IN ROOM TO CHECK AND ASK THE PATIENT OF WHAT IS GOING ON. PATIENT STATED, "SOMEBODY TOOK MY UNDERWEAR THAT WAS VERY EXPENSSIVE UNDERWEAR." PATIENT STARTED YELLING OUT TO THIS RN AND STARTED THROWING HIS PERSONAL BELONGINGS IN ROOM. THIS RN TOLD PATIENT IF HE COULD NOT HAVE A DESCENT CONVERSATION WITH S RN, THEN TOLD PATIENT THIS RN NEED TO EXIT THE ROOM. THIS RN LEFT THE ROOM AND NOTIFIED ELIGIBILITY CONSULTANT, SLIME LOPEZ. SLIME CALLED SECURITY TO PLACE ON STANDBY AND KEEP AN EYE ON PATIENT. SECURITY BROUGHT A PAIR OF PANTS AND SHIRT, SANDWICH AND PEPSI TO DRINK TO PATIENT. PATIENT BECOMES CALM AND COOPERATIVE. DENIES N/V. TOLERATED PO INTAKE WELL. NO BM THIS SHIFT. IV TO R FOREARM WAS DC'D. PATIENT DISCHARGE HOME. DISCHARGE INSTRUCTION PACKET GIVEN TO PATIENT. EDUCATE PATIENT REGARDING ADMITTING DX, S/S, TX, AND NEW PRESCRIBED MEDICATION. PATIENT STATED UNDERSTANDING AND NO FURTHER QUESTIONS. RX WAS FAXED TO PATIENT PREFERRED PHARMACY ([facility] ALL PATIENT PERSONAL BELONGINGS WERE SENT HOME WITH THE PATIENT. PATIENT WAS OFFERED TO BE TRANSPORTED VIA WHEELCHAIR BY THIS RN. PATIENT REFUSED AND STATED "NO, I DON'T NEED WHEELCHAIR I CAN WALK WITHOUT ANY PROBLEMS, BUT THANK YOU THOUGH." PATIENT LEFT THE ROOM AT AROUND 1125.
== END 2022-06-15 11:26 | disposition home or self-care (01) ==
LOC: ER 22:25 → MEDS 22:26
PROVIDERS: Internal Medicine; Student in an Organized Health Care Education/Training Program; ADMIT Internal Medicine
DX: R11.2 Nausea with vomiting, unspecified (principal); R10.9 Unspecified abdominal pain; E87.1 Hypo-osmolality and hyponatremia; D72.829 Elevated white blood cell count, unspecified; F17.200 Nicotine dependence, unspecified, uncomplicated
CPT/HCPCS: 36415; 80048; 80053; 80069; 83690; 84484; 85014; 85018; 85025; 85027; 93005; 93010; 94762; 96361; 96374; 96375; 96376; 99285-25; C9113; G0378; J2270; J2405; J2550; J7030

== ENCOUNTER 2023-08-25 19:27 | Emergency (ER) | payer OTHER ==
[~2023-08-25] VITALS: Ht 172.7 cm; Wt 65.8 kg
[~2023-08-25 19:27] MED LIST changes: +Calcium Carbon500 MG PO; +PANTOPRAZOLE SO PO; +Protonix40 MG PO
[2023-08-26] MEDS ORDERED: Glucagon 1 MG/KIT VIAL IV ONE (00:25)
[2023-08-26] MEDS ORDERED: Nitroglycerin 0.4 MG SUBL SL PRN (03:25)
[2023-08-26 04:00] VITALS: BP 141/95
[2023-08-26] MEDS ORDERED: Ketorolac Tromethamine 30mg Vial IV ONE (05:05)
[2023-08-26] MEDS ORDERED: Ondansetron HCl 2 MG / ML 2ML Vial IV ONE (05:05)
[2023-08-26] MEDS ORDERED: NS 1,000 ML IV SCH (05:05)
[2023-08-26 06:29] LABS: BASOPHILS ABSOLUTE AUTO 0.03 K/mm3 (0.00-0.23); BASOPHILS PERCENT AUTO 0 % (0-2); EOSINOPHILS ABSOLUTE AUTO 0.03 K/mm3 (0.00-0.68); EOSINOPHILS PERCENT AUTO 0 % (0-6); Hemoglobin 16.3 g/dL (13.5-17.5); IMMATURE GRAN ABSOLUTE AUTO 0.06 K/mm3 (0.00-0.10); IMMATURE GRAN PERCENT AUTO 0 % (0-1); LYMPHOCYTES ABSOLUTE AUTO 1.71 K/mm3 (0.84-5.20); LYMPHOCYTES PERCENT AUTO 11 % (21-46); MONOCYTES ABSOLUTE AUTO 1.04 K/mm3 (0.16-1.47); MONOCYTES PERCENT AUTO 7 % (4-13); Mean Corpuscular HGB 31.4 pg (26.0-34.0); Mean Corpuscular HGB Conc 34.7 g/dL (31.5-36.5); Mean Corpuscular Volume 91 fL (80-100); Mean Platelet Volume 9.5 fL (9.1-12.4); NEUTROPHILS ABSOLUTE AUTO 12.95 K/mm3 (1.96-9.15); NEUTROPHILS PERCENT AUTO 82 % (41-73); Platelet Count 344 K/mm3 (150-400); RDW Coefficient Variation 12.8 % (11.7-14.2); Red Blood Cell Count 5.19 M/mm3 (4.30-5.90); White Blood Cell Count 15.82 K/mm3 (4.00-11.30)
[2023-08-26 06:44] LABS: Albumin, Blood 3.4 g/dL (3.4-5.0); Albumin/Globulin Ratio 0.7 (0.8-1.8); Bilirubin, Total 0.6 mg/dL (0.1-1.0); Bun/Creatinine Ratio 25.3 (12.0-20.0); Calcium, Blood 9.2 mg/dL (8.5-10.1); Creatinine, Blood 0.79 mg/dL (0.60-1.20); Globulin, Blood 4.6 g/dL (2.2-4.0); Potassium, Blood 4.4 mmol/L (3.5-5.5)
== END 2023-08-26 10:01 | disposition short-term general hospital (02) ==
LOC: ER 19:27
PROVIDERS: Emergency Medicine
DX: E86.0 Dehydration (principal); T18.128A Food in esophagus causing other injury, initial encounter; R10.13 Epigastric pain; F17.200 Nicotine dependence, unspecified, uncomplicated; Z79.899 Other long term (current) drug therapy; Z91.048 Other nonmedicinal substance allergy status
CPT/HCPCS: 71046; 80053; 83690; 85025; 96374; 96375; 99285-25; A9270; J1610; J1885; J2405; J7030

== ENCOUNTER 2023-10-28 10:38 | Emergency (ER) | payer OTHER ==
[~2023-10-28] VITALS: Ht 172.7 cm; Wt 63.5 kg
[~2023-10-28 10:38] MED LIST changes: +HYDCHL25 PO; +MIRALAX17 GM PO; +Percocet 5-3251 EACH PO; +VISBIOME 112.51 EACH PO
[2023-10-28] MEDS ORDERED: Lactated Ringer's 1,000 ML IV ONE ×2 (11:40→15:15)
[2023-10-28] MEDS ORDERED: Ondansetron HCl 2 MG / ML 2ML Vial IV ONE (11:40)
[2023-10-28] MEDS ORDERED: Famotidine 10 MG/ML 2ML Vial IV ONE (11:40)
[2023-10-28 11:46] LABS: BASOPHILS ABSOLUTE AUTO 0.07 K/mm3 (0.00-0.23); BASOPHILS PERCENT AUTO 0 % (0-2); EOSINOPHILS ABSOLUTE AUTO 0.05 K/mm3 (0.00-0.68); EOSINOPHILS PERCENT AUTO 0 % (0-6); Hematocrit 44.6 % (37.0-53.0); IMMATURE GRAN ABSOLUTE AUTO 0.08 K/mm3 (0.00-0.10); IMMATURE GRAN PERCENT AUTO 1 % (0-1); LYMPHOCYTES ABSOLUTE AUTO 1.24 K/mm3 (0.84-5.20); LYMPHOCYTES PERCENT AUTO 7 % (21-46); MONOCYTES ABSOLUTE AUTO 0.77 K/mm3 (0.16-1.47); MONOCYTES PERCENT AUTO 4 % (4-13); Mean Corpuscular HGB 31.1 pg (26.0-34.0); Mean Corpuscular HGB Conc 33.6 g/dL (31.5-36.5); Mean Corpuscular Volume 93 fL (80-100); Mean Platelet Volume 9.1 fL (9.1-12.4); NEUTROPHILS PERCENT AUTO 87 % (41-73); Platelet Count 300 K/mm3 (150-400); RDW Coefficient Variation 13.4 % (11.7-14.2); RDW Standard Deviation 45.5 fL (35.1-46.3); Red Blood Cell Count 4.82 M/mm3 (4.30-5.90); White Blood Cell Count 17.31 K/mm3 (4.00-11.30)
[2023-10-28 11:47] LABS: pH Blood Venous 7.47 (7.34-7.37)
[2023-10-28 11:48] LABS: Base Excess Venous 8.6 mmol/L; Bicarbonate Venous 31.2 mmol/L (24.0-30.0); PCO2 Venous 45 mmHg (38-42)
[2023-10-28 11:56] LABS: Albumin, Blood 3.5 g/dL (3.4-5.0); Albumin/Globulin Ratio 0.8 (0.8-1.8); Bilirubin, Total 0.4 mg/dL (0.1-1.0); Bun/Creatinine Ratio 15.3 (12.0-20.0); Calcium, Blood 8.7 mg/dL (8.5-10.1); Creatinine, Blood 0.65 mg/dL (0.60-1.20); Globulin, Blood 4.2 g/dL (2.2-4.0); Potassium, Blood 3.4 mmol/L (3.5-5.5); Total Protein, Blood 7.7 g/dL (6.4-8.2)
[2023-10-28] MEDS ORDERED: Haloperidol Lactate Inj. 5 MG/ML Injection IV ONE (12:40)
[2023-10-28 15:45] VITALS: BP 145/85
== END 2023-10-28 17:10 | disposition home or self-care (01) ==
LOC: ER 10:38
PROVIDERS: Emergency Medicine
DX: K29.71 Gastritis, unspecified, with bleeding (principal); K22.6 Gastro-esophageal laceration-hemorrhage syndrome; F17.210 Nicotine dependence, cigarettes, uncomplicated; Z91.048 Other nonmedicinal substance allergy status; Z79.899 Other long term (current) drug therapy
CPT/HCPCS: 71045; 80053; 82803; 83690; 85025; 96361; 96374; 96375; 99284-25; J1630; J2405; J7120

== ENCOUNTER 2024-01-05 07:43 | Emergency (ER) | payer OTHER ==
[~2024-01-05] VITALS: Ht 172.7 cm; Wt 63.5 kg
[2024-01-05] MEDS ORDERED: Ondansetron HCl 2 MG / ML 2ML Vial IV ONE (07:55)
[2024-01-05 08:35] LABS: BASOPHILS ABSOLUTE AUTO 0.07 K/mm3 (0.00-0.23); BASOPHILS PERCENT AUTO 0 % (0-2); EOSINOPHILS ABSOLUTE AUTO 0.01 K/mm3 (0.00-0.68); EOSINOPHILS PERCENT AUTO 0 % (0-6); Hematocrit 51.4 % (37.0-53.0); Hemoglobin 17.6 g/dL (13.5-17.5); IMMATURE GRAN ABSOLUTE AUTO 0.12 K/mm3 (0.00-0.10); IMMATURE GRAN PERCENT AUTO 1 % (0-1); LYMPHOCYTES ABSOLUTE AUTO 1.79 K/mm3 (0.84-5.20); LYMPHOCYTES PERCENT AUTO 9 % (21-46); MONOCYTES ABSOLUTE AUTO 1.36 K/mm3 (0.16-1.47); MONOCYTES PERCENT AUTO 6 % (4-13); Mean Corpuscular HGB 30.9 pg (26.0-34.0); Mean Corpuscular HGB Conc 34.2 g/dL (31.5-36.5); Mean Corpuscular Volume 90 fL (80-100); NEUTROPHILS PERCENT AUTO 84 % (41-73); Platelet Count 356 K/mm3 (150-400); RDW Coefficient Variation 13.1 % (11.7-14.2); RDW Standard Deviation 43.2 fL (35.1-46.3); White Blood Cell Count 21.15 K/mm3 (4.00-11.30)
[2024-01-05 08:40] LABS: Albumin, Blood 3.9 g/dL (3.4-5.0); Albumin/Globulin Ratio 0.8 (0.8-1.8); Bilirubin, Total 0.6 mg/dL (0.1-1.0); Bun/Creatinine Ratio 17.7 (12.0-20.0); Calcium, Blood 9.6 mg/dL (8.5-10.1); Creatinine, Blood 0.74 mg/dL (0.60-1.20); Globulin, Blood 4.7 g/dL (2.2-4.0); Potassium, Blood 3.7 mmol/L (3.5-5.5); Total Protein, Blood 8.6 g/dL (6.4-8.2)
[2024-01-05] MEDS ORDERED: Pantoprazole Sodium 40 MG Injection IV ONE (08:50)
[2024-01-05] MEDS ORDERED: NS 1,000 ML IV SCH (08:55)
[2024-01-05] MEDS ORDERED: OMEP20ER PO (10:05)
[2024-01-05] MEDS ORDERED: ONDA4ODT MM (10:05)
[2024-01-05 10:17] LABS: Source, Urine Clean Catch
[2024-01-05 10:28] LABS: Appearance, Urine Clear (Clear); Bilirubin, Urine Neg (Neg); Blood, Urine Neg (Neg); Color, Urine Yellow (P-Yellow); Glucose Qualitative, Urine Neg (Neg); Ketones, Urine Neg (Neg); Leukocyte Esterase, Urine Neg (Neg); Nitrite, Urine Neg (Neg); Protein, Urine 1+ (Neg); Urobilinogen, Urine NORM (Normal)
[2024-01-05 11:06] VITALS: BP 133/68
== END 2024-01-05 11:07 | disposition home or self-care (01) ==
LOC: ER 07:43
PROVIDERS: Student in an Organized Health Care Education/Training Program
DX: K22.6 Gastro-esophageal laceration-hemorrhage syndrome (principal); F17.200 Nicotine dependence, unspecified, uncomplicated; Z88.8 Allergy status to other drugs, medicaments and biological substances
CPT/HCPCS: 80053; 83690; 85025; 96361; 96374; 96375; 99284-25; J2405; J2470; J7030

== ENCOUNTER 2024-03-05 04:54 | Emergency (ER) | payer OTHER ==
[~2024-03-05] VITALS: Ht 172.7 cm; Wt 63.5 kg
[~2024-03-05 04:54] MED LIST changes: +OMEP20ER PO; +ONDA4ODT MM
[2024-03-05 05:29] LABS: BASOPHILS ABSOLUTE AUTO 0.07 K/mm3 (0.00-0.23); BASOPHILS PERCENT AUTO 1 % (0-2); EOSINOPHILS ABSOLUTE AUTO 0.37 K/mm3 (0.00-0.68); EOSINOPHILS PERCENT AUTO 3 % (0-6); Hematocrit 51.2 % (37.0-53.0); Hemoglobin 17.6 g/dL (13.5-17.5); IMMATURE GRAN ABSOLUTE AUTO 0.05 K/mm3 (0.00-0.10); IMMATURE GRAN PERCENT AUTO 0 % (0-1); LYMPHOCYTES ABSOLUTE AUTO 2.37 K/mm3 (0.84-5.20); LYMPHOCYTES PERCENT AUTO 18 % (21-46); MONOCYTES ABSOLUTE AUTO 0.72 K/mm3 (0.16-1.47); MONOCYTES PERCENT AUTO 5 % (4-13); Mean Corpuscular HGB 30.9 pg (26.0-34.0); Mean Corpuscular HGB Conc 34.4 g/dL (31.5-36.5); Mean Corpuscular Volume 90 fL (80-100); Mean Platelet Volume 8.7 fL (9.1-12.4); NEUTROPHILS ABSOLUTE AUTO 9.87 K/mm3 (1.96-9.15); NEUTROPHILS PERCENT AUTO 73 % (41-73); Platelet Count 323 K/mm3 (150-400); RDW Coefficient Variation 13.2 % (11.7-14.2); RDW Standard Deviation 43.8 fL (35.1-46.3); Red Blood Cell Count 5.69 M/mm3 (4.30-5.90); White Blood Cell Count 13.45 K/mm3 (4.00-11.30)
[2024-03-05 05:55] LABS: Albumin, Blood 4.2 g/dL (3.4-5.0); Bilirubin, Total 0.6 mg/dL (0.1-1.0); Bun/Creatinine Ratio 11.9 (12.0-20.0); Creatinine, Blood 0.67 mg/dL (0.60-1.20); Globulin, Blood 4.4 g/dL (2.2-4.0); Potassium, Blood 3.6 mmol/L (3.5-5.5); Total Protein, Blood 8.6 g/dL (6.4-8.2)
[2024-03-05] MEDS ORDERED: Mag Hydrox/AL Hydrox/Simeth 30 ML UDC PO ONE (06:30)
[2024-03-05] MEDS ORDERED: Lidocaine 2% Viscous Soln 15 ML UDC PO ONE (06:30)
[2024-03-05 08:00] VITALS: BP 170/104
[2024-03-05] MEDS ORDERED: OMEP20ER PO (08:18)
[2024-03-05] MEDS ORDERED: Acetaminophen 500 MG Tab PO ONE (08:30)
[2024-03-05] MEDS ORDERED: PROM25 PO (17:53)
== END 2024-03-05 08:36 | disposition home or self-care (01) ==
LOC: ER 04:54
PROVIDERS: Student in an Organized Health Care Education/Training Program
DX: R11.2 Nausea with vomiting, unspecified (principal); F15.10 Other stimulant abuse, uncomplicated; F17.200 Nicotine dependence, unspecified, uncomplicated; Z91.048 Other nonmedicinal substance allergy status
CPT/HCPCS: 74022; 74177; 80053; 83690; 84484; 85025; 93005; 93010; 96374-59; 96375; 99284-25; 99285-25; A9270; J2405; J2470; J7030; Q9967

== ENCOUNTER 2024-06-06 11:12 | Emergency (ER) | payer OTHER ==
[~2024-06-06] VITALS: Ht 175.3 cm; Wt 65.3 kg
[~2024-06-06 11:12] MED LIST changes: +PROM25 PO
[2024-06-06 11:48] VITALS: BP 163/112
[2024-06-06 12:54] LABS: BASOPHILS ABSOLUTE AUTO 0.05 K/mm3 (0.00-0.23); BASOPHILS PERCENT AUTO 0 % (0-2); EOSINOPHILS PERCENT AUTO 0 % (0-6); Hematocrit 53.3 % (37.0-53.0); Hemoglobin 18.7 g/dL (13.5-17.5); IMMATURE GRAN ABSOLUTE AUTO 0.06 K/mm3 (0.00-0.10); IMMATURE GRAN PERCENT AUTO 0 % (0-1); LYMPHOCYTES ABSOLUTE AUTO 1.78 K/mm3 (0.84-5.20); LYMPHOCYTES PERCENT AUTO 10 % (21-46); MONOCYTES ABSOLUTE AUTO 0.94 K/mm3 (0.16-1.47); MONOCYTES PERCENT AUTO 5 % (4-13); Mean Corpuscular HGB Conc 35.1 g/dL (31.5-36.5); Mean Corpuscular Volume 91 fL (80-100); NEUTROPHILS ABSOLUTE AUTO 14.95 K/mm3 (1.96-9.15); NEUTROPHILS PERCENT AUTO 84 % (41-73); Platelet Count 319 K/mm3 (150-400); RDW Coefficient Variation 12.3 % (11.7-14.2); RDW Standard Deviation 41.5 fL (35.1-46.3); Red Blood Cell Count 5.85 M/mm3 (4.30-5.90); White Blood Cell Count 17.78 K/mm3 (4.00-11.30)
[2024-06-06 13:30] LABS: Albumin, Blood 4.4 g/dL (3.4-5.0); Albumin/Globulin Ratio 0.9 (0.8-1.8); Bilirubin, Total 0.7 mg/dL (0.1-1.0); Bun/Creatinine Ratio 17.7 (12.0-20.0); Creatinine, Blood 0.74 mg/dL (0.60-1.20); Potassium, Blood 4.4 mmol/L (3.5-5.5); Total Protein, Blood 9.4 g/dL (6.4-8.2)
[2024-06-06] MEDS ORDERED: Mag Hydrox/AL Hydrox/Simeth 30 ML UDC PO ONE (13:40)
[2024-06-06] MEDS ORDERED: Lidocaine 2% Viscous Soln 15 ML UDC PO ONE (13:40)
[2024-06-06] MEDS ORDERED: NS 1,000 ML IV SCH (13:45)
[2024-06-06] MEDS ORDERED: Ondansetron HCl 2 MG / ML 2ML Vial ONE (13:58)
[2024-06-06] MEDS ORDERED: Ondansetron HCl 2 MG / ML 2ML Vial IV ONE (14:00)
[2024-06-06] MEDS ORDERED: ONDA4ODT MM (14:44)
[2024-06-06] MEDS ORDERED: OMEP20ER PO (14:44)
[2024-06-06] MEDS ORDERED: Pantoprazole Sodium 40 MG Injection IV ONE (15:05)
== END 2024-06-06 15:34 | disposition home or self-care (01) ==
LOC: ER 11:12
PROVIDERS: Family Medicine
DX: K20.90 Esophagitis, unspecified without bleeding (principal); F17.200 Nicotine dependence, unspecified, uncomplicated
CPT/HCPCS: 71045; 80053; 82272; 83690; 84484; 85025; 96374; 96375; 99285-25; A9270; J2405; J2470; J7030

== ENCOUNTER 2024-07-23 12:08 | Emergency (ER) | payer OTHER ==
[~2024-07-23] VITALS: Ht 172.7 cm; Wt 65.8 kg
[2024-07-23 12:09] VITALS: BP 200/106
[2024-07-23] MEDS ORDERED: Mag Hydrox/AL Hydrox/Simeth 30 ML UDC PO ONE (12:45)
[2024-07-23] MEDS ORDERED: Lidocaine 2% Viscous Soln 15 ML UDC PO ONE (12:45)
[2024-07-23] MEDS ORDERED: Omeprazole 20 MG CapCR PO ONE (12:50)
[2024-07-23] MEDS ORDERED: OMEP20ER PO (12:51)
[2024-07-23] MEDS ORDERED: ONDA4 PO (18:55)
[2024-07-23] MEDS ORDERED: ACET500 PO (18:55)
[2024-07-23] MEDS ORDERED: IBUP600 PO (18:55)
== END 2024-07-23 12:56 | disposition home or self-care (01) ==
LOC: ER 12:08
DX: K21.9 Gastro-esophageal reflux disease without esophagitis (principal); Z91.048 Other nonmedicinal substance allergy status; R10.13 Epigastric pain; F17.200 Nicotine dependence, unspecified, uncomplicated
CPT/HCPCS: 36415; 71045; 74177; 80053; 80320; 82272; 83605; 83690; 85025; 85610; 85730; 86850; 86900; 86901; 87040; 93005; 93010; 96374-59; 96375; 99283; 99284-25; A9270; J2354; J2405; J2470; Q9967

== ENCOUNTER 2024-07-23 15:07 | Emergency (ER) | payer OTHER ==
[~2024-07-23] VITALS: Ht 172.7 cm; Wt 63.5 kg
[2024-07-23] MEDS ORDERED: Octreotide Acetate 50 MCG in NS 50 ML IV ONE (15:15)
[2024-07-23] MEDS ORDERED: Ondansetron HCl 2 MG / ML 2ML Vial IV ONE (15:15)
[2024-07-23] MEDS ORDERED: CefTRIAXone Sodium 1,000 MG in NS 100 ML IV ONE (15:15)
[2024-07-23] MEDS ORDERED: Pantoprazole Sodium 40 MG Injection IV ONE (15:15)
[2024-07-23 15:42] LABS: BASOPHILS ABSOLUTE AUTO 0.08 K/mm3 (0.00-0.23); BASOPHILS PERCENT AUTO 1 % (0-2); EOSINOPHILS ABSOLUTE AUTO 0.11 K/mm3 (0.00-0.68); EOSINOPHILS PERCENT AUTO 1 % (0-6); Hematocrit 51.4 % (37.0-53.0); Hemoglobin 17.9 g/dL (13.5-17.5); IMMATURE GRAN ABSOLUTE AUTO 0.05 K/mm3 (0.00-0.10); IMMATURE GRAN PERCENT AUTO 0 % (0-1); LYMPHOCYTES ABSOLUTE AUTO 2.21 K/mm3 (0.84-5.20); LYMPHOCYTES PERCENT AUTO 16 % (21-46); MONOCYTES ABSOLUTE AUTO 0.95 K/mm3 (0.16-1.47); MONOCYTES PERCENT AUTO 7 % (4-13); Mean Corpuscular HGB 31.2 pg (26.0-34.0); Mean Corpuscular HGB Conc 34.8 g/dL (31.5-36.5); Mean Corpuscular Volume 90 fL (80-100); Mean Platelet Volume 9.1 fL (9.1-12.4); NEUTROPHILS ABSOLUTE AUTO 10.22 K/mm3 (1.96-9.15); NEUTROPHILS PERCENT AUTO 75 % (41-73); Platelet Count 348 K/mm3 (150-400); RDW Coefficient Variation 13.4 % (11.7-14.2); RDW Standard Deviation 43.2 fL (35.1-46.3); Red Blood Cell Count 5.73 M/mm3 (4.30-5.90); White Blood Cell Count 13.62 K/mm3 (4.00-11.30)
[2024-07-23 16:04] LABS: Ethanol (Alcohol), Blood, Med <3 mg/dL
[2024-07-23 16:05] LABS: Alanine Aminotransfer (ALT/SGP 21 U/L (12-78); Albumin, Blood 4.1 g/dL (3.4-5.0); Albumin/Globulin Ratio 0.9 (0.8-1.8); Alk Phos 104 U/L (50-136); Anion Gap 9 mmol/L (3-11); Bilirubin, Total 0.5 mg/dL (0.1-1.0); Blood Urea Nitrogen 12 mg/dL (8-24); Bun/Creatinine Ratio 16.7 (12.0-20.0); CO2, Blood 30 mmol/L (21-32); Calcium, Blood 9.6 mg/dL (8.5-10.1); Chloride, Blood 98 mmol/L (98-108); Creatinine, Blood 0.72 mg/dL (0.60-1.20); Globulin, Blood 4.7 g/dL (2.2-4.0); Glomerular Filtration Rate 109 (60-); Glucose, Blood 121 mg/dL (70-99); Sodium, Blood 132 mmol/L (136-145); Total Protein, Blood 8.8 g/dL (6.4-8.2)
[2024-07-23 16:06] LABS: Aspartate Aminotrans (AST/SGOT 41 U/L (12-37); Potassium, Blood 5.3 mmol/L (3.5-5.5)
[2024-07-23 17:33] LABS: International Normalized Ratio 0.95; Prothrombin Time Results 10.2 Sec (9.7-11.5)
[2024-07-23] MEDS ORDERED: IBUP600 PO (18:55)
[2024-07-23] MEDS ORDERED: ACET500 PO (18:55)
[2024-07-23] MEDS ORDERED: ONDA4 PO (18:55)
[2024-07-23 19:28] VITALS: BP 152/100
== END 2024-07-23 19:28 | disposition home or self-care (01) ==
LOC: ER 15:07
PROVIDERS: Emergency Medicine
DX: K22.6 Gastro-esophageal laceration-hemorrhage syndrome (principal); F17.200 Nicotine dependence, unspecified, uncomplicated; Z91.048 Other nonmedicinal substance allergy status
CPT/HCPCS: 36415; 71045; 74177; 80053; 80320; 82272; 83605; 83690; 85025; 85610; 85730; 86850; 86900; 86901; 87040; 93005; 93010; 96374-59; 96375; 99284-25; J2354; J2405; J2470; Q9967

== ENCOUNTER 2024-11-23 20:07 | Emergency (ER) | payer OTHER ==
[~2024-11-23] VITALS: Ht 172.7 cm; Wt 67.6 kg
[~2024-11-23 20:07] MED LIST changes: +ACET500 PO; +IBUP600 PO; +ONDA4 PO
[2024-11-23] MEDS ORDERED: OMEP20ER (20:26)
[2024-11-23 20:57] LABS: BASOPHILS ABSOLUTE AUTO 0.07 K/mm3 (0.00-0.23); BASOPHILS PERCENT AUTO 0 % (0-2); EOSINOPHILS ABSOLUTE AUTO 0.06 K/mm3 (0.00-0.68); EOSINOPHILS PERCENT AUTO 0 % (0-6); Hematocrit 49.9 % (37.0-53.0); Hemoglobin 17.0 g/dL (13.5-17.5); IMMATURE GRAN ABSOLUTE AUTO 0.09 K/mm3 (0.00-0.10); IMMATURE GRAN PERCENT AUTO 0 % (0-1); LYMPHOCYTES ABSOLUTE AUTO 2.55 K/mm3 (0.84-5.20); LYMPHOCYTES PERCENT AUTO 11 % (21-46); MONOCYTES ABSOLUTE AUTO 1.39 K/mm3 (0.16-1.47); MONOCYTES PERCENT AUTO 6 % (4-13); Mean Corpuscular HGB Conc 34.1 g/dL (31.5-36.5); Mean Corpuscular Volume 92 fL (80-100); NEUTROPHILS ABSOLUTE AUTO 18.85 K/mm3 (1.96-9.15); NEUTROPHILS PERCENT AUTO 82 % (41-73); NRBC ABSOLUTE 0.00 K/mm3 (0.00-0.02); NRBC Auto 0.0 /100 WBC (0.0-0.2); Platelet Count 348 K/mm3 (150-400); RDW Coefficient Variation 13.3 % (11.7-14.2); RDW Standard Deviation 45.4 fL (35.1-46.3)
[2024-11-23 21:11] LABS: Alanine Aminotransfer (ALT/SGP 15 U/L (12-78); Albumin, Blood 3.8 g/dL (3.4-5.0); Albumin/Globulin Ratio 0.9 (0.8-1.8); Anion Gap 10 mmol/L (3-11); Aspartate Aminotrans (AST/SGOT 10 U/L (12-37); Bilirubin, Total 0.8 mg/dL (0.1-1.0); Blood Urea Nitrogen 22 mg/dL (8-24); CO2, Blood 32 mmol/L (21-32); Calcium, Blood 9.4 mg/dL (8.5-10.1); Chloride, Blood 94 mmol/L (98-108); Creatinine, Blood 1.10 mg/dL (0.60-1.20); Globulin, Blood 4.3 g/dL (2.2-4.0); Glucose, Blood 155 mg/dL (70-99); Potassium, Blood 3.7 mmol/L (3.5-5.5); Sodium, Blood 132 mmol/L (136-145); Total Protein, Blood 8.1 g/dL (6.4-8.2)
[2024-11-23] MEDS ORDERED: Metoclopramide HCl 5MG / ML 2ML Vial IV ONE (22:20)
[2024-11-23] MEDS ORDERED: NS 1,000 ML IV SCH (22:20)
[2024-11-23] MEDS ORDERED: Pantoprazole Sodium 40 MG Injection IV ONE (22:20)
[2024-11-24 00:51] LABS: Source, Urine Clean Catch
[2024-11-24 01:36] LABS: Bilirubin, Urine Neg (Neg); Color, Urine Yellow (P-Yellow); Glucose Qualitative, Urine Neg (Neg); Ketones, Urine Neg (Neg); Leukocyte Esterase, Urine Neg (Neg); Protein, Urine 1+ (Neg); Specific Gravity, Urine 1.010 (1.003-1.022); Urobilinogen, Urine NORM (Normal)
[2024-11-24] MEDS ORDERED: ONDA4ODT MM (01:53)
[2024-11-24] MEDS ORDERED: PANT40 PO (01:53)
[2024-11-24 03:20] VITALS: BP 115/86
== END 2024-11-24 03:18 | disposition home or self-care (01) ==
LOC: ER 20:07
PROVIDERS: Emergency Medicine
DX: R11.2 Nausea with vomiting, unspecified (principal); R07.9 Chest pain, unspecified; Z88.8 Allergy status to other drugs, medicaments and biological substances; Z79.899 Other long term (current) drug therapy
CPT/HCPCS: 71260; 74177; 80053; 83690; 85025; 96361; 96374-59; 96375; 99285-25; A9270; J2470; J2765; J7030; Q9967

== ENCOUNTER 2024-12-18 17:51 | Emergency (ER) | payer OTHER ==
[~2024-12-18] VITALS: Ht 172.7 cm; Wt 63.5 kg
[~2024-12-18 17:51] MED LIST changes: +OMEP20ER; +PANT40 PO
[2024-12-18 18:09] VITALS: BP 116/79
[2024-12-18] MEDS ORDERED: Ketorolac Tromethamine 15mg Vial IM ONE (18:15)
== END 2024-12-18 22:05 | disposition home or self-care (01) ==
LOC: ER 17:51
DX: S43.401A Unspecified sprain of right shoulder joint, initial encounter (principal); S60.512A Abrasion of left hand, initial encounter; S60.511A Abrasion of right hand, initial encounter; S50.812A Abrasion of left forearm, initial encounter; S50.811A Abrasion of right forearm, initial encounter; S09.90XA Unspecified injury of head, initial encounter; Z23 Encounter for immunization; F17.200 Nicotine dependence, unspecified, uncomplicated; V19.3XXA Pedal cyclist (driver) (passenger) injured in unspecified nontraffic accident, initial encounter; Z79.899 Other long term (current) drug therapy; Z91.048 Other nonmedicinal substance allergy status; Z79.2 Long term (current) use of antibiotics
CPT/HCPCS: 73030; 96372; 99283-25; J1885

== ENCOUNTER 2025-03-10 17:33 | Emergency (ER) | payer OTHER ==
[~2025-03-10] VITALS: Ht 175.3 cm; Wt 63.5 kg
[2025-03-10] MEDS ORDERED: Pantoprazole Sodium 40 MG Injection IV ONE (18:05)
[2025-03-10 18:39] LABS: BASOPHILS ABSOLUTE AUTO 0.06 K/mm3 (0.00-0.23); BASOPHILS PERCENT AUTO 0 % (0-2); EOSINOPHILS ABSOLUTE AUTO 0.06 K/mm3 (0.00-0.68); EOSINOPHILS PERCENT AUTO 0 % (0-6); Hematocrit 48.8 % (37.0-53.0); Hemoglobin 16.5 g/dL (13.5-17.5); IMMATURE GRAN ABSOLUTE AUTO 0.05 K/mm3 (0.00-0.10); IMMATURE GRAN PERCENT AUTO 0 % (0-1); LYMPHOCYTES ABSOLUTE AUTO 1.20 K/mm3 (0.84-5.20); LYMPHOCYTES PERCENT AUTO 8 % (21-46); MONOCYTES ABSOLUTE AUTO 0.60 K/mm3 (0.16-1.47); MONOCYTES PERCENT AUTO 4 % (4-13); Mean Corpuscular HGB Conc 33.8 g/dL (31.5-36.5); Mean Corpuscular Volume 91 fL (80-100); NEUTROPHILS ABSOLUTE AUTO 13.30 K/mm3 (1.96-9.15); NEUTROPHILS PERCENT AUTO 87 % (41-73); NRBC ABSOLUTE 0.00 K/mm3 (0.00-0.02); NRBC Auto 0.0 /100 WBC (0.0-0.2); Platelet Count 294 K/mm3 (150-400); RDW Coefficient Variation 12.6 % (11.7-14.2); RDW Standard Deviation 42.3 fL (35.1-46.3)
[2025-03-10 18:53] LABS: Prothrombin Time Results 10.4 Sec (9.7-11.5)
[2025-03-10 19:04] LABS: Alanine Aminotransfer (ALT/SGP 18.0 U/L (12-78); Albumin, Blood 3.9 g/dL (3.4-5.0); Albumin/Globulin Ratio 0.8 (0.8-1.8); Anion Gap 9.0 mmol/L (3-11); Aspartate Aminotrans (AST/SGOT 13.0 U/L (12-37); Bilirubin, Total 0.5 mg/dL (0.1-1.0); Blood Urea Nitrogen 10.0 mg/dL (8-24); CO2, Blood 32.0 mmol/L (21-32); Calcium, Blood 9.5 mg/dL (8.5-10.1); Chloride, Blood 99.0 mmol/L (98-108); Creatinine, Blood 0.6 mg/dL (0.60-1.20); Globulin, Blood 4.8 g/dL (2.2-4.0); Glucose, Blood 132.0 mg/dL (70-99); Potassium, Blood 3.7 mmol/L (3.5-5.5); Sodium, Blood 136.0 mmol/L (136-145); Total Protein, Blood 8.7 g/dL (6.4-8.2)
[2025-03-10] MEDS ORDERED: Ondansetron HCl 2 MG / ML 2ML Vial IV ONE (19:15)
[2025-03-10] MEDS ORDERED: Labetalol HCL 5 MG/ML 4ML Injection (Single Dose) IV ONE (19:15)
[2025-03-10] MEDS ORDERED: NS 1,000 ML IV SCH (19:15)
[2025-03-10] MEDS ORDERED: PANT20 PO (19:35)
[2025-03-11 00:42] VITALS: BP 139/78
== END 2025-03-11 01:17 | disposition home or self-care (01) ==
LOC: ER 17:33
PROVIDERS: Emergency Medicine
DX: K92.0 Hematemesis (principal); I10 Essential (primary) hypertension; F17.200 Nicotine dependence, unspecified, uncomplicated; Z79.899 Other long term (current) drug therapy; Z88.8 Allergy status to other drugs, medicaments and biological substances; Z91.048 Other nonmedicinal substance allergy status
CPT/HCPCS: 80053; 83690; 85025; 85610; 96374; 96375; 99284-25; J2405; J2470; J7030

== ENCOUNTER 2025-03-28 11:27 | Observation (INO) | payer OTHER ==
[~2025-03-28] VITALS: Ht 172.7 cm; Wt 63.5 kg
[~2025-03-28 11:27] MED LIST changes: +PANT20 PO
[2025-03-28 12:15] LABS: BASOPHILS ABSOLUTE AUTO 0.07 K/mm3 (0.00-0.23); BASOPHILS PERCENT AUTO 0 % (0-2); EOSINOPHILS ABSOLUTE AUTO 0.21 K/mm3 (0.00-0.68); EOSINOPHILS PERCENT AUTO 1 % (0-6); Hematocrit 48.2 % (37.0-53.0); Hemoglobin 16.5 g/dL (13.5-17.5); IMMATURE GRAN ABSOLUTE AUTO 0.08 K/mm3 (0.00-0.10); IMMATURE GRAN PERCENT AUTO 0 % (0-1); LYMPHOCYTES ABSOLUTE AUTO 1.91 K/mm3 (0.84-5.20); LYMPHOCYTES PERCENT AUTO 11 % (21-46); MONOCYTES ABSOLUTE AUTO 0.89 K/mm3 (0.16-1.47); MONOCYTES PERCENT AUTO 5 % (4-13); Mean Corpuscular HGB Conc 34.2 g/dL (31.5-36.5); Mean Corpuscular Volume 92 fL (80-100); NEUTROPHILS ABSOLUTE AUTO 14.69 K/mm3 (1.96-9.15); NEUTROPHILS PERCENT AUTO 82 % (41-73); NRBC ABSOLUTE 0.00 K/mm3 (0.00-0.02); NRBC Auto 0.0 /100 WBC (0.0-0.2); Platelet Count 317 K/mm3 (150-400); RDW Coefficient Variation 12.7 % (11.7-14.2); RDW Standard Deviation 43.1 fL (35.1-46.3)
[2025-03-28 12:40] LABS: Alanine Aminotransfer (ALT/SGP 19.0 U/L (12-78); Albumin, Blood 3.7 g/dL (3.4-5.0); Albumin/Globulin Ratio 0.8 (0.8-1.8); Anion Gap 8.0 mmol/L (3-11); Aspartate Aminotrans (AST/SGOT 17.0 U/L (12-37); Bilirubin, Total 0.4 mg/dL (0.1-1.0); Blood Urea Nitrogen 10.0 mg/dL (8-24); CO2, Blood 32.0 mmol/L (21-32); Calcium, Blood 9.4 mg/dL (8.5-10.1); Chloride, Blood 98.0 mmol/L (98-108); Creatinine, Blood 0.69 mg/dL (0.60-1.20); Globulin, Blood 4.5 g/dL (2.2-4.0); Glucose, Blood 118.0 mg/dL (70-99); Potassium, Blood 3.7 mmol/L (3.5-5.5); Sodium, Blood 134.0 mmol/L (136-145); Total Protein, Blood 8.2 g/dL (6.4-8.2)
[2025-03-28] MEDS ORDERED: Ondansetron HCl 2 MG / ML 2ML Vial IV ONE (13:05)
[2025-03-28] MEDS ORDERED: Ketorolac Tromethamine 15mg Vial IV ONE (13:15)
[2025-03-28] MEDS ORDERED: Lidocaine 2% Viscous Soln 15 ML UDC PO ONE (13:15)
[2025-03-28] MEDS ORDERED: Atropine/Scopalam/Hyoscam/PB 5 ML UDC PO ONE (13:15)
[2025-03-28] MEDS ORDERED: NS 1,000 ML IV SCH ×2 (15:30→18:30)
[2025-03-28 16:18] LABS: Source, Urine Clean Catch
[2025-03-28] MEDS ORDERED: Pantoprazole Sodium 40 MG Injection IV ONE (16:20)
[2025-03-28 16:30] LABS: Bilirubin, Urine Neg (Neg); Color, Urine Yellow (P-Yellow); Glucose Qualitative, Urine Neg (Neg); Ketones, Urine Neg (Neg); Leukocyte Esterase, Urine Neg (Neg); Protein, Urine 1+ (Neg); Specific Gravity, Urine 1.010 (1.003-1.022); Urobilinogen, Urine NORM (Normal)
[2025-03-28 16:37] LABS: Red Blood Cells, Urine 0-2 /hpf (0-2); White Blood Cells, Urine 0-2 /hpf (0-5)
[2025-03-28] MEDS ORDERED: FLU VACC TS2025-26(6MOS UP)/PF 45 MCG/0.5 ML SYRINGE IM SCH (17:50)
[2025-03-28] MEDS ORDERED: Ondansetron HCl 2 MG / ML 2ML Vial IV PRN (17:55)
--- NOTE | 2025-03-28 19:50 | NUR ---
ATTEMPT TO CALL ER NURSE FOR REPORT. THEY WILL CALL BACK.
[2025-03-28 20:34] LABS: Hematocrit 45.4 % (37.0-53.0); Hemoglobin 15.4 g/dL (13.5-17.5)
[2025-03-28 20:45] VITALS: BP 166/98
[2025-03-28 20:55] LABS: U Amphetamine Screen DETECTED; U Barbiturate Screen Not Detected; U Benzodiazapine Screen Not Detected; U Buprenorphine Screen Not Detected; U Cannabinoids Screen DETECTED; U Cocaine Screen Not Detected; U Methadone Screen Not Detected; U Methamphetamine Screen DETECTED; U Opiates Screen Not Detected; U Oxycodone Screen Not Detected; U Phencyclidine Screen Not Detected
[2025-03-28 20:56] LABS: Prothrombin Time Results 10.6 Sec (9.7-11.5)
[2025-03-28 23:41] LABS: Hematocrit 45.5 % (37.0-53.0); Hemoglobin 15.2 g/dL (13.5-17.5)
[2025-03-29 00:16] VITALS: BP 164/96
[2025-03-29 04:31] VITALS: BP 137/92
--- NOTE | 2025-03-29 05:36 | NUR ---
SHIFT SUMMARY PATIENT ARRIVED TO UNIT VIA ED [facility] AT 2034 LAST NIGHT. PATIENT A/OX4, NO APPARENT DISTRESS. PATIENT WAS ABLE TO STAND AND TRANSFER INDEPENDENTLY TO PCU BED. PATIENT PLEASANT AND COOPERATIVE WITH ALL CARE. ANSWERED ALL QUESTIONS APPROPRIATELY, ALTHOUGH WAS SHORT TO RESPOND DUE TO BEING TIRED. PATIENT SLEPT MOST OF THE NIGHT. SR-ST ON MONITOR. VSS. STOOD TO VOID AT BEDSIDE WITH URINAL. NS INFUSING PER ORDER. BED ALARM IN PLACE. DID NOT CALL PRIOR TO GETTING OUT OF BED. NO NAUSEA OR VOMITING. DENIED ABD PAIN. ROSA CLEAR LIQUIDS. GI HAS BEEN CONSULTED IN ED. PLAN OF CARE ONGOING.
[2025-03-29 05:40] LABS: Hematocrit 45.0 % (37.0-53.0); Hemoglobin 14.8 g/dL (13.5-17.5); Mean Corpuscular HGB Conc 32.9 g/dL (31.5-36.5); Mean Corpuscular Volume 93 fL (80-100); NRBC ABSOLUTE 0.00 K/mm3 (0.00-0.02); NRBC Auto 0.0 /100 WBC (0.0-0.2); Platelet Count 274 K/mm3 (150-400); RDW Coefficient Variation 13.0 % (11.7-14.2); RDW Standard Deviation 44.3 fL (35.1-46.3)
[2025-03-29 06:12] LABS: Alanine Aminotransfer (ALT/SGP 16.0 U/L (12-78); Albumin, Blood 2.9 g/dL (3.4-5.0); Albumin/Globulin Ratio 0.7 (0.8-1.8); Anion Gap 7.0 mmol/L (3-11); Aspartate Aminotrans (AST/SGOT 13.0 U/L (12-37); Bilirubin, Total 0.6 mg/dL (0.1-1.0); Blood Urea Nitrogen 13.0 mg/dL (8-24); CO2, Blood 27.0 mmol/L (21-32); Calcium, Blood 8.6 mg/dL (8.5-10.1); Chloride, Blood 106.0 mmol/L (98-108); Creatinine, Blood 0.79 mg/dL (0.60-1.20); Globulin, Blood 4.0 g/dL (2.2-4.0); Glucose, Blood 107.0 mg/dL (70-99); Potassium, Blood 4.2 mmol/L (3.5-5.5); Sodium, Blood 136.0 mmol/L (136-145); Total Protein, Blood 6.9 g/dL (6.4-8.2)
[2025-03-29 08:34] VITALS: BP 137/94
[2025-03-29] MEDS ORDERED: Pantoprazole Sodium 40 MG Injection IV SCH (09:00)
--- NOTE | 2025-03-29 09:58 | NUR ---
AM NOTE: PT A/OX3 ABLE TO ANSWER QUESTIONS AND MAKE NEEDS KNOWN. HE DENIES ANY PAIN AND N/V. HE IS TOLERATING CL. FLUIDS INFUSING PER MAR. HE REMAINS IN SINUS WITH RATES IN THE 70S. CALL LIGHT IN REACH. CARE CONTINUES
[2025-03-29 11:49] VITALS: BP 144/83
[2025-03-29 11:52] LABS: Hematocrit 43.0 % (37.0-53.0); Hemoglobin 14.5 g/dL (13.5-17.5)
[2025-03-29] MEDS ORDERED: PANT40 PO (14:28)
--- NOTE | 2025-03-29 15:34 | NUR ---
DISCHARGE NOTE: PT DENIES QUESTIONS OR NEEDS AT TIME OF DISCHARGE. HE STATES VERBAL UNDERSTANDING OF TAKING PRESCRIBED MEDICATION AND ESTABLISHING PRIMARY CARE. THIS RN ESCORTED HIM TO DOOR WHERE HE WILL MEET ENVIRONMENTAL DESIGNER.
== END 2025-03-29 15:30 | disposition home or self-care (01) ==
LOC: ER 11:27 → PCU 11:28
PROVIDERS: Nurse Practitioner Acute Care; Physician Assistant; Student in an Organized Health Care Education/Training Program; ADMIT Student in an Organized Health Care Education/Training Program
DX: K92.0 Hematemesis (principal); I10 Essential (primary) hypertension; D72.829 Elevated white blood cell count, unspecified; K21.9 Gastro-esophageal reflux disease without esophagitis; F15.10 Other stimulant abuse, uncomplicated; F17.210 Nicotine dependence, cigarettes, uncomplicated; Z91.09 Other allergy status, other than to drugs and biological substances; Z91.148 Patient's other noncompliance with medication regimen for other reason; Z79.899 Other long term (current) drug therapy; Z87.19 Personal history of other diseases of the digestive system
CPT/HCPCS: 36415; 80053; 81001; 83690; 85014; 85018; 85025; 85027; 85610; 96361; 96374; 96375; 99285-25; A9270; G0378; J1790; J1885; J2405; J2470; J7030